=== PATIENT | male | born 2000 | race Caucasian/White ===

== ENCOUNTER 2025-01-01 09:42 | Outpatient (CLI) | payer BC, SELFPAY | END 2025-01-01 09:43 | disposition home or self-care (01) | PROVIDERS: PCP Family Medicine; Visit Provider Family Medicine | DX: Z13.228 Encounter for screening for other metabolic disorders (principal); Z13.6 Encounter for screening for cardiovascular disorders | CPT/HCPCS: 80048; 80061 ==